=== PATIENT | female | born 1965 | race Caucasian/White ===

== ENCOUNTER 2016-09-25 17:00 | Observation (INO) | payer OTHER ==
[~2016-09-25] VITALS: Ht 162.6 cm; Wt 96.7 kg
[2016-09-25] MEDS ORDERED: ASPIRIN 81 MG CHEW PO STA (17:30)
[2016-09-25 17:31] LABS: BASO % 0.2 %; BASO ABS # 0.01 K/uL (0-0.2); COMPLETE YES; EOS % 3.6 %; HEMATOCRIT 41.9 % (37-47); IG% 0.3 %; LYMPH % 34.4 %; LYMPH ABS # 2.28 K/uL (1.2-3.4); MEAN CELL VOLUME 86.4 fL (80-100); MEAN CORPUSCULAR HEMOGLOBIN 30.5 pg (25-34); MEAN CORPUSCULAR HGB CONC 35.3 g/dl (32-36); MEAN PLATELET VOLUME 9.1 fL (7.4-10.4); MONO % 8.9 %; NEUT % 52.6 %; PLATELET COUNT 269 K/uL (130-400); RED BLOOD COUNT 4.85 M/uL (4.2-5.4); WHITE BLOOD COUNT 6.63 K/uL (4.8-10.8)
[2016-09-25] MEDS ORDERED: METF-384 PO (17:41)
[2016-09-25] MEDS ORDERED: CHOL2000 PO (17:41)
[2016-09-25] MEDS ORDERED: ESOM20CA PO (17:41)
[2016-09-25 17:48] LABS: BLOOD UREA NITROGEN 10 mg/dl (7-18); BUN/CREATININE RATIO 11.3 (10-20); CALCIUM 8.9 mg/dl (8.5-10.1); CARBON DIOXIDE 27 mmol/L (21-32); CHLORIDE 103 mmol/L (98-107); CREATININE 0.88 mg/dl (0.60-1.20); GLUCOSE 145 mg/dl (70-99); POTASSIUM 3.5 mmol/L (3.5-5.1); SODIUM 141 mmol/L (136-145)
--- NOTE | 2016-09-25 17:50 | DIAGNOSTIC IMAGING REPORT ---
CHEST ONE VIEW PORTABLE CLINICAL HISTORY: Atypical chest pain COMPARISON STUDY: No previous studies for comparison. FINDINGS: The cardiac and mediastinal contours are normal. There is no evidence of focal pulmonary consolidation. There is no evidence of failure. No pleural effusions are visualized.[ There are linear left basilar opacities, likely atelectatic. IMPRESSION: No active disease in the chest. Electronically signed by: Wayne Lewis M.D. 09/25/2016 5:48 PM Dictated Date/Time: 09/25/2016 5:48 PM
[2016-09-25 17:53] LABS: CKMB/CK RATIO 1.6 (0-3.0)
[2016-09-25] MEDS ORDERED: IV FLUIDS COMPLETED PRN (19:45)
[2016-09-25 20:03] LABS: ALKALINE PHOSPHATASE 51 U/L (45-117); ALT/SGPT 37 U/L (12-78); AST/SGOT 21 U/L (15-37); MAGNESIUM 1.7 mg/dl (1.8-2.4)
[2016-09-25] MEDS ORDERED: GLUCOSE 40% GEL 15 GM TUBE PO PRN (20:15)
[2016-09-25] MEDS ORDERED: ONDANSETRON INJ 2 MG/ML 2 ML VIAL IV PRN (20:15)
[2016-09-25] MEDS ORDERED: DEXTROSE 50% 50 ML SYR IV PRN (20:15)
[2016-09-25] MEDS ORDERED: GLUCOSE 10 TABS/TUBE PO PRN (20:15)
[2016-09-25] MEDS ORDERED: OPTIRAY 320 IV PRN (20:15)
[2016-09-25] MEDS ORDERED: PROMETHAZINE HCL INJ 12.5 MG in SODIUM CHLORIDE 0.9% 50ML 50 ML IV PRN (20:15)
[2016-09-25] MEDS ORDERED: TRAMADOL HCL 50 MG TAB PO PRN (20:15)
[2016-09-25] MEDS ORDERED: ACETAMINOPHEN 325 MG TAB PO PRN (20:15)
[2016-09-25] MEDS ORDERED: LORAZEPAM 2 MG/ML 1 ML VIAL IV PRN (20:15)
[2016-09-25] MEDS ORDERED: GLUCAGON FOR INJ 1 MG VIAL SQ PRN (20:15)
[2016-09-25] MEDS ORDERED: MoRPHine SULFATE 4 MG/ML 1 ML CARP\\VIAL IV PRN (20:15)
[2016-09-25] MEDS ORDERED: NITROGLYCERIN 0.4 MG SL PER TAB CHARGE SL PRN (20:15)
--- NOTE | 2016-09-25 20:36 | DIAGNOSTIC IMAGING REPORT ---
CT ANGIOGRAM OF THE CHEST, ABDOMEN, AND PELVIS CLINICAL HISTORY: Atypical chest and abdominal pain. Suspected aortic dissection. COMPARISON STUDY: Chest x-ray dated 09/25/2016 TECHNIQUE: Before and following the IV administration of 110 mL of [id number]-320, CT angiogram of the chest, abdomen, and pelvis was performed from the thoracic inlet to the proximal femurs. Images are reviewed in the axial, sagittal, and coronal planes. IV contrast was administered without complication. Imaged portions of the thyroid gland are normal in appearance. MIP images were performed. CT DOSE: 2942.28 mGy.cm FINDINGS: CHEST: Thoracic aorta: The thoracic aorta is normal in course and caliber, noting standard 3-vessel arch anatomy. No aneurysm or dissection is seen. Pulmonary vasculature: The pulmonary trunk is normal in caliber. There are no filling defects in the main, lobar, or segmental pulmonary branches to suggest pulmonary embolus. HEART: The heart is normal in size and configuration, without pericardial effusion. Lungs and pleural spaces: There are no pleural effusions. There is left basilar atelectasis. There is no lobar consolidation. There are bilateral calcified granulomata present. Mediastinum: There is no mediastinal lymphadenopathy. Tuyet: Clear. Axilla: Clear. ABDOMEN AND PELVIS: Liver: No hepatic masses are visualized in this arterial phase study. Gallbladder: Cholelithiasis Spleen: Normal in size and attenuation. Pancreas: Unremarkable. Adrenal glands: Unremarkable. Kidneys: There is symmetric renal cortical enhancement. The kidneys are normal in size without hydronephrosis. Bowel: There are no transition zones indicate bowel obstruction. There is no evidence of acute appendicitis. There is no evidence of acute diverticulitis. Peritoneum: There is no intraperitoneal free air or abdominal ascites. There is a fat-containing umbilical hernia. Abdominal aorta: The abdominal aorta is normal in course and caliber. There is no evidence of common iliac or external iliac stenosis. There is no evidence of renal artery stenosis. There are 3 right renal arteries. There is no evidence of superior mesenteric artery stenosis or celiac artery stenosis. The inferior mesenteric artery is patent. Adenopathy: None. Pelvic viscera: There is a 34 mm right ovarian cyst. Skeletal structures: No destructive osseous lesions are seen. IMPRESSION: 1. No CT evidence of thoracic or abdominal aortic aneurysm or dissection 2. Cholelithiasis 3. No evidence of bowel obstruction. No evidence of free air. 4. No evidence of acute diverticulitis. No evidence of acute appendicitis 5. Fat-containing umbilical hernia 6. 34 mm right ovarian cyst Electronically signed by: Wyane Lewis M.D. 09/25/2016 8:34 PM Dictated Date/Time: 09/25/2016 8:26 PM
[2016-09-25 21:03] VITALS: BP 139/88; PULSE 75; TEMP 36.5; O2SAT 96; Ht 162.6 cm; Wt 96.7 kg
[2016-09-25] MEDS ORDERED: MAGNESIUM SULFATE 1GM / D5W 1 GM in PREMIXED IN D5W 100 ML IV ONE (21:30)
--- NOTE | 2016-09-25 21:36 | HISTORY & PHYSICAL EXAMINATION ---
DATE OF ADMISSION: 09/25/2016 PRIMARY CARE DOCTOR: Dr. Bjorn Bradford obtained from px and records. CHIEF COMPLAINT: Chest pain. HISTORY OF PRESENT ILLNESS: Medical history is significant for DM2 on oral medications. GERD. Two weeks history on and off substernal discomfort going to her shoulder blades , some shortness of breath, no diaphoresis, nonpleuritic. At some point discomfort going to the left arm. Admits to some stress at work from a co-worker. Currently comfortable in the Emergency Room. MEDICAL HISTORY: As above. SURGERIES: She had foot surgery, some cyst drainage. HOME MEDICATIONS: Include; metformin, Nexium, vitamin D. ALLERGIES: TO AZITHROMYCIN, LATEX, SULFA. FAMILY HISTORY: Heart disease. PERSONAL AND SOCIAL HISTORY: Nonsmoker. No chronic intake of alcoholic beverages, tobacco dipper REVIEW OF SYSTEMS: As per HPI, all other ROS negative. PHYSICAL EXAMINATION: VITAL SIGNS: Blood pressure is 146/90, pulse rate 92, RR 18, temperature 36.6 sats 98 on room air. GENERAL: Noted to be slightly anxious, obese, in no respiratory distress. SKIN: Normal color. HEENT: [place] palpebral conjunctivae. Dry mucosa. NECK: No JVD , supple CHEST: Clear to auscultation. HEART: Regular rate and rhythm. ABDOMEN: Soft. EXTREMITIES: No edema. no tenderness NEUROLOGIC: No gross focality. LABORATORIES: Hemoglobin was 14, hematocrit 41, white cell count 6, platelets 200 Sodium 141, potassium 3.5, chloride 105, CO2 27, BUN 16, creatinine 0.8, glucose 140. Troponin was normal. EKG; rate 80, normal sinus rhythm. no ischemia, PRWP Chest x-ray; no infiltrate. ASSESSMENT: 1. Chest pain. Differentials include : aortic dissection, acute coronary syndrome, anxiety 2. DM2 on oral medications unknown baseline control 3. hx exercise induced asthma 4. GERD, stable on medications. PLAN: Observation PCU. CT chest, aortic dissection study DSE if if CT angio unremarkable and next troponin normal. Aspirin for CAD prevention until ACS is ruled out. anxiolytic prn ISS BG goal 140-180, check HgA1c. DVT prophylaxis. Lovenox subQ Full code. MTDD
[2016-09-25] MEDS: INSULIN ASPART 100 UNITS/ML 3 ML PEN SC SCH (22:01)
[2016-09-25] MEDS: LACTATED RINGER'S 1000ML 1,000 ML IV SCH (22:07)
--- NOTE | 2016-09-25 22:26 | EMERGENCY ROOM VISIT NOTE ---
History Report prepared by Aaliyah: Rashaad Chris Under the Supervision of: Dr. Aries Merlos D.O. First contact with patient: 17:10 Chief Complaint: CARDIAC ASSESSMENT Stated Complaint: CHEST PAIN History of Present Illness The patient is a 51 year old female who presents to the Emergency Room with complaints of persistent chest discomfort for the past five days. The patient describes the discomfort as feeling like somebody is pushing on her chest and she feels it in the middle of her chest. The patient notes that she has woken up with the pain three times. She also complains of a "weird sensation" in her left arm that she describes as pinching and aching as well as some shortness of breath. She does have a history of asthma so she is unsure if the shortness of breath is related to her history, but her inhaler has not been helping relieve her symptoms. She notes that she has been experiencing the arm pain and shortness of breath at the same times the she is having the chest pain. The patient has noticed that she has been experiencing increased stress at work for the past week and she has been feeling more anxious than normal. Pt denies headache, change in vision, fevers, jaw pain, nausea, vomiting, diarrhea, pain with urination, melena, or swelling of calves. She denies recent travel. Source of History: patient Onset: 5 days Position: chest Quality: other (pushing on her chest) Timing: other (persistent) Associated Symptoms: + SOB, No diarrhea, No fevers, No headache, No melena, No nausea, No urinary symptoms, No vomiting Note: Other associated symptoms: left arm pain, Denies: changes in vision, jaw pain, swelling of calves. Review of Systems See HPI for pertinent positives & negatives. A total of 10 systems reviewed and were otherwise negative. Past Medical & Surgical Medical Problems: (1) Chest pain Family History Patient reports no known family medical history. Social History Smoking Status: Never Smoker Marital Status: Housing Status: lives with significant other Occupation Status: employed Current/Historical Medications Scheduled Cholecalciferol (Vitamin D3), 1 CAP PO DAILY Esomeprazole Magnesium (Nexium), 20 MG PO DAILY Metformin Hcl (Glucophage), 1,000 MG PO BID Allergies Coded Allergies: Azithromycin (Verified Allergy, Unknown, hives, 09/25/16) Latex (Verified Allergy, Unknown, swelling, 09/25/16) Sulfa Antibiotics (Verified Allergy, Unknown, hives, 09/25/16) Physical Exam Vital Signs Date Time Temp Pulse Resp B/P Pulse Ox O2 Delivery O2 Flow Rate FiO2 09/25/16 19:28 80 19 134/67 96 Room Air 09/25/16 18:58 77 18 134/75 94 Room Air 09/25/16 18:28 81 15 136/73 95 Room Air 09/25/16 18:03 75 16 118/89 96 Room Air 09/25/16 17:24 96 Room Air 09/25/16 17:18 84 09/25/16 17:10 96 Room Air 09/25/16 17:04 37.2 92 18 146/92 98 Room Air Physical Exam GENERAL: sitting up in bed, anxious, distressed, non-toxic EYE EXAM: normal conjunctiva, OROPHARYNX: no exudate, no erythema, lips, buccal mucosa, and tongue normal and mucous membranes are moist NECK: supple, no nuchal rigidity, no adenopathy, non-tender LUNGS: Clear to auscultation. Normal chest wall mechanics HEART: no murmurs, S1 normal and S2 normal ABDOMEN: abdomen soft, non-tender, normo-active bowel sounds, no masses, no rebound or guarding. BACK: Back is symmetrical on inspection and there is no deformity, no midline tenderness, no CVA tenderness. SKIN: no rashes and no bruising UPPER EXTREMITIES: upper extremities are grossly normal. Radial pulses are equal bilaterally LOWER EXTREMITIES: No pitting edema. Calves are equal bilaterally. NEURO EXAM: Normal sensorium, cranial nerves II-XII grossly intact, normal speech, no gross weakness of arms, no gross weakness of legs. Medical Decision & Procedures ER Provider Diagnostic Interpretation: Xray results per the radiologist and my interpretation. Other results have been interpreted by the radiologist and reviewed by me. CHEST ONE VIEW PORTABLE CLINICAL HISTORY: Atypical chest pain COMPARISON STUDY: No previous studies for comparison. FINDINGS: The cardiac and mediastinal contours are normal. There is no evidence of focal pulmonary consolidation. There is no evidence of failure. No pleural effusions are visualized.[ There are linear left basilar opacities, likely atelectatic. IMPRESSION: No active disease in the chest. Electronically signed by: Wayne Lewis M.D. 09/25/2016 5:48 PM Dictated Date/Time: 09/25/2016 5:48 PM Laboratory Results 1/22/17 17:20 Red Blood Count 4.85, Mean Corpuscular Volume 86.4, Mean Corpuscular Hemoglobin 30.5, Mean Corpuscular Hemoglobin Concent 35.3, Mean Platelet Volume 9.1, Neutrophils (%) (Auto) 52.6, Lymphocytes (%) (Auto) 34.4, Monocytes (%) (Auto) 8.9, Eosinophils (%) (Auto) 3.6, Basophils (%) (Auto) 0.2, Neutrophils # (Auto) 3.49, Lymphocytes # (Auto) 2.28, Monocytes # (Auto) 0.59, Eosinophils # (Auto) 0.24, Basophils # (Auto) 0.01 09/25/16 17:20 Test 09/25/16 17:20 White Blood Count 6.63 K/uL (4.8-10.8) Red Blood Count 4.85 M/uL (4.2-5.4) Hemoglobin 14.8 g/dL (12.0-16.0) Hematocrit 41.9 % (37-47) Mean Corpuscular Volume 86.4 fL (80-100) Mean Corpuscular Hemoglobin 30.5 pg (25-34) Mean Corpuscular Hemoglobin Concent 35.3 g/dl (32-36) Platelet Count 269 K/uL (130-400) Mean Platelet Volume 9.1 fL (7.4-10.4) Neutrophils (%) (Auto) 52.6 % Lymphocytes (%) (Auto) 34.4 % Monocytes (%) (Auto) 8.9 % Eosinophils (%) (Auto) 3.6 % Basophils (%) (Auto) 0.2 % Neutrophils # (Auto) 3.49 K/uL (1.4-6.5) Lymphocytes # (Auto) 2.28 K/uL (1.2-3.4) Monocytes # (Auto) 0.59 K/uL (0.11-0.59) Eosinophils # (Auto) 0.24 K/uL (0-0.5) Basophils # (Auto) 0.01 K/uL (0-0.2) RDW Standard Deviation 41.4 fL (36.4-46.3) RDW Coefficient of Variation 13.0 % (11.5-14.5) Immature Granulocyte % (Auto) 0.3 % Immature Granulocyte # (Auto) 0.02 K/uL (0.00-0.02) Activated Partial Thromboplast Time 25.4 SECONDS (21.0-31.0) Partial Thromboplastin Ratio 1.0 Anion Gap 11.0 mmol/L (3-11) Est Creatinine Clear Calc Drug Dose 84.7 ml/min Estimated GFR () 88.2 Estimated GFR (Non- 76.1 BUN/Creatinine Ratio 11.3 (10-20) Calcium Level 8.9 mg/dl (8.5-10.1) Magnesium Level 1.7 mg/dl (1.8-2.4) Total Bilirubin 0.2 mg/dl (0.2-1) Direct Bilirubin < 0.1 mg/dl (0-0.2) Aspartate Amino Transf (AST/SGOT) 21 U/L (15-37) Alanine Aminotransferase (ALT/SGPT) 37 U/L (12-78) Alkaline Phosphatase 51 U/L (45-117) Total Creatine Kinase 98 U/L (26-192) Creatine Kinase MB 1.6 ng/ml (0.5-3.6) Creatine Kinase MB Ratio 1.6 (0-3.0) Troponin I < 0.015 ng/ml (0-0.045) Total Protein 7.9 gm/dl (6.4-8.2) Albumin 3.6 gm/dl (3.4-5.0) Lipase 158 U/L (73-393) Thyroid Stimulating Hormone (TSH) 3.440 uIu/ml (0.300-4.500) Laboratory results per my review. Medications Administered Medications (Trade) Dose Ordered Sig/Aleah Route Start Time Stop Time Status Last Admin Dose Admin Aspirin (Aspirin Chew) 162 mg NOW STAT PO 09/25/16 17:30 09/25/16 17:31 DC 09/25/16 18:03 162 MG ECG Indication: chest pain Rate (beats per minute): 80 Rhythm: sinus rhythm Findings: other (normal axis. flipped t-wave in lead 3) Change: Repeat EKG since patient had an episode of chest pain: No acute change. Sinus rhythm, rate of 72, Normal axis, T-wave in lead 3. ED Course ED COURSE: Vital signs were reviewed and showed normal The patients medical record was reviewed The above diagnostic studies were performed and reviewed. ED treatments and interventions as stated above. 170: The patient was evaluated in room A11. A complete history and physical examination was performed. 1729: Ordered Aspirin 162 mg PO. 1923: At this time, I discussed the patient's case with Dr. José - Mike Castillo and he agreed to accept the patient for further evaluation. 1929: Upon reevaluation, the patient is resting.I discussed my findings with the patient and she understands and agrees with the treatment plan. Based on the patients age, coexisting illnesses, exam and lab findings the decision to treat as an inpatient was made. The patient remained stable while under my care. The patient will be evaluated for further management. Medical Decision Differential diagnoses includes but is not limited to acute coronary syndrome, myocardial infarction, pericarditis, pulmonary embolus, aortic dissection, pneumonia, pneumothorax, musculoskeletal, shingles, esophageal. Patient is a 51-year-old female who presents the ER for intermittent chest pain over the past 24 hours along with shortness of breath and left arm pain. She does have a history of diabetes and coronary artery disease runs in her family. The symptoms do not appear to be exertional. She has no other complaints at this time. She complete asystematic. EKG shows a flipped T-wave in lead 3. CBC along with BMP, and troponin are negative. Chest x-ray was unremarkable. Patient was updated regards to findings. She did have one episode of chest pain along the ER which resolved quickly but were unable to obtain an EKG which was unchanged. She was given 2 additional aspirin upon arrival as she had taken to already. She was updated in its internal medicine for cardiac rule out. Consults Time Called: 1919 Consulting Physician: Dr. José - Mike Csatillo Returned Call: 1923 At this time, I discussed the patient's case with Dr. José and he agreed to accept the patient for further evaluation. Impression Primary Impression: Precordial chest pain Scribe Attestation The scribe's documentation has been prepared under my direction and personally reviewed by me in its entirety. I confirm that the note above accurately reflects all work, treatment, procedures, and medical decision making performed by me. Departure Information Dispostion Being Evaluated By HospitalNavid Rizzo D.O. (PCP)
[2016-09-25 23:52] VITALS: BP 136/86; PULSE 82; TEMP 36.8; O2SAT 95
[2016-09-26 03:32] VITALS: BP 110/69; PULSE 74; TEMP 36.6; O2SAT 96
[2016-09-26 06:40] LABS: BASO % 0.2 %; BASO ABS # 0.01 K/uL (0-0.2); COMPLETE YES; EOS % 4.1 %; IG% 0.3 %; LYMPH % 31.6 %; LYMPH ABS # 1.98 K/uL (1.2-3.4); MEAN CELL VOLUME 86.2 fL (80-100); MEAN CORPUSCULAR HEMOGLOBIN 29.3 pg (25-34); MEAN PLATELET VOLUME 9.2 fL (7.4-10.4); MONO % 7.8 %; PLATELET COUNT 235 K/uL (130-400); RED BLOOD COUNT 4.64 M/uL (4.2-5.4); WHITE BLOOD COUNT 6.27 K/uL (4.8-10.8)
[2016-09-26] MEDS: INSULIN ASPART 100 UNITS/ML 3 ML PEN SC SCH ×3 (07:00→16:15)
[2016-09-26 07:04] LABS: ESTIMATED AVERAGE GLUCOSE 169 mg/dl; HA1C FLAG Normal (Normal)
[2016-09-26 07:16] LABS: BLOOD UREA NITROGEN 10 mg/dl (7-18); BUN/CREATININE RATIO 16.9 (10-20); CARBON DIOXIDE 27 mmol/L (21-32); CHLORIDE 105 mmol/L (98-107); CREATININE 0.62 mg/dl (0.60-1.20); GLUCOSE 160 mg/dl (70-99); MAGNESIUM 2.1 mg/dl (1.8-2.4); POTASSIUM 3.6 mmol/L (3.5-5.1); SODIUM 141 mmol/L (136-145)
[2016-09-26 07:18] VITALS: BP 110/69; PULSE 80; TEMP 36.6; O2SAT 95
[2016-09-26 07:21] LABS: CHOLESTEROL 171 mg/dl (0-200); CHOLESTEROL/HDL RATIO 4.6; HDL CHOLESTEROL 37 mg/dl; LDL CHOLESTEROL CALCULATED 88 mg/dl; TRIGLYCERIDES 232 mg/dl (0-150); VERY LOW DENSITY LIPOPROT CALC 46 mg/dl
[2016-09-26] MEDS ORDERED: PANTOprazole SOD 40 MG TAB PO SCH (09:00)
[2016-09-26] MEDS ORDERED: ENOXAPARIN 40 MG/0.4 ML SYR SQ SCH (09:00)
[2016-09-26] MEDS ORDERED: ASPIRIN 325 MG ECTAB PO SCH (09:00)
[2016-09-26] MEDS ORDERED: ATROPINE SULFATE 0.1 MG/ML 5ML SYR ONE ×2 (09:55→10:50)
[2016-09-26] MEDS ORDERED: METOPROLOL TARTRATE 1 MG/ML VIAL ONE (09:55)
[2016-09-26] MEDS ORDERED: DOBUTamine HCL 12.5 MG/ML 20 ML VIAL ONE (09:55)
[2016-09-26] MEDS: LACTATED RINGER'S 1000ML 1,000 ML IV SCH (10:50)
--- NOTE | 2016-09-26 11:46 | DOBUTAMINE ECHO ---
*NOTICE TO RECEIVING DEMOCRAT AGENCY This information is strictly Confidential and protected under [place] law. [place] law prohibits you from making any further disclosure of this information unless further disclosure is expressly permitted by the written consent of the person to whom it pertains or is authorized by law. A general authorization for the release of medical or other information is not sufficient for this purpose. Hospital accepts no responsibility if the information is made available to any other person, INCLUDING THE PATIENT. Interpretation Summary * STRESS STUDY: Normal pharmacologic stress echocardiogram. No echocardiographic or ECG evidence of myocardial ischemia having achieved heart rate adequate for diagnostic purposes. * -- Conclusions -- * Name: MORENA PURCELL Study Date: 09/26/2016 09:29 AM BP: 135/67 mmHg * Patient Location: 15 HR: 87 * : 1965 (M/d/yyyy) Gender: Female Height: 64 in * Age: 51 yrs Ethnicity: [place] Weight: 213 lb * Ordering Physician: Ottoniel José * Referring Physician: Self, Referred * Performed By: Mane Fitzgerald RCS * * Reason For Study: Chest Pain * BSA: 2.0 m2 Procedure Details * DOBUTAMINE ECHO, CPT#59409 * ECHO COLOR FLOW, CPT #[id number] * ECHO DOPPLER, CPT #[id number] Left Ventricle * The left ventricle is normal in size. * There is normal left ventricular wall thickness. * Left ventricular systolic function is normal. * Ejection Fraction = 60-65%. * The left ventricular wall motion is normal at rest. * The left ventricular ejection fraction increases normally with stress. The left ventricular end-systolic cavity size reduces post-stress (normal response). The left ventricular wall motion with stress is normal. Right Ventricle * The right ventricle is normal in size and function. Atria * The left atrial size is normal. * Right atrial size is normal. * No ASD detected; PFO is not assessed. Mitral Valve * The mitral valve anatomy is normal. * There is no mitral valve stenosis. * Significant mitral regurgitation is absent. Tricuspid Valve * The tricuspid valve anatomy is normal. * There is no tricuspid stenosis. * Significant tricuspid regurgitation is absent. Aortic Valve * The aortic valve is trileaflet. * Aortic stenosis is absent. * There is no significant aortic regurgitation. Pulmonic Valve * The pulmonary valve is not well seen, but the Doppler examination is normal without significant regurgitation or stenosis. Great Vessels * The aortic root and proximal ascending aorta are normal sized. Pericardium * There is no pericardial effusion. Stress Parameters * Normal baseline electrocardiogram. * The stress ECG response was normal * The stress portion of this study was personally supervised by the undersigned interpreting physician. * Rest heart rate was '87' BPM. * Rest blood pressure was '135/67' * Maximum heart rate achieved was 155 bpm. * Maximum heart rate was 91 % of maximum age-predicted heart rate. * Maximum blood pressure was '135/67' * Maximum Dobutamine infusion rate was '40' mcg/kg/min. * A total of .5 mg of intravenous Atropine was used to supplement Dobutamine for heart rate response. * Dobutamine infusion was terminated due to achieving target heart rate * A total of 10 mg of IV Metoprolol was administered to reverse Dobutamine-induced tachycardia. * Normal blood pressure response to exercise. MMode 2D Measurements and Calculations IVSd 0.96 cm IVSs 1.3 cm LVIDd 4.6 cm LVIDs 2.8 cm LVPWd 0.97 cm LVPWs 1.3 cm IVS/LVPW 0.99 FS 38.9 % EDV(Teich) 96.9 ml ESV(Teich) 29.7 ml EF(Teich) 69.3 % EDV(cubed) 96.7 ml ESV(cubed) 22.1 ml EF(cubed) 77.2 % % IVS thick 31.2 % % LVPW thick 30.0 % LV mass(C)d 150.4 grams LV mass(C)dI 74.9 grams/m\S\2 LV mass(C)s 107.7 grams LV mass(C)sI 53.6 grams/m\S\2 CO(Teich) 5.1 l/min CI(Teich) 2.5 l/min/m\S\2 SV(Teich) 67.1 ml SI(Teich) 33.4 ml/m\S\2 CO(cubed) 5.7 l/min CI(cubed) 2.8 l/min/m\S\2 SV(cubed) 74.6 ml SI(cubed) 37.1 ml/m\S\2 Ao root diam 3.1 cm Ao root area 7.6 cm\S\2 ACS 1.7 cm LA dimension 3.3 cm LA/Ao 1.1 LVAd ap4 27.9 cm\S\2 LVLd ap4 7.9 cm EDV(MOD-sp4) 81.0 ml LVAs ap4 15.2 cm\S\2 LVLs ap4 6.0 cm ESV(MOD-sp4) 33.0 ml EF(MOD-sp4) 59.3 % LVAd ap2 32.1 cm\S\2 LVLd ap2 9.2 cm EDV(MOD-sp2) 94.0 ml LVAs ap2 16.5 cm\S\2 LVLs ap2 6.7 cm ESV(MOD-sp2) 34.0 ml EF(MOD-sp2) 63.8 % CO(MOD-sp4) 3.6 l/min CI(MOD-sp4) 1.8 l/min/m\S\2 SV(MOD-sp4) 48.0 ml SI(MOD-sp4) 23.9 ml/m\S\2 CO(MOD-sp2) 4.6 l/min CI(MOD-sp2) 2.3 l/min/m\S\2 SV(MOD-sp2) 60.0 ml SI(MOD-sp2) 29.9 ml/m\S\2 Doppler Measurements and Calculations MV E max verónica 90.8 cm/sec MV A max verónica 83.4 cm/sec MV E/A 1.1 MV P1/2t max verónica 94.1 cm/sec MV P1/2t 93.3 msec MVA(P1/2t) 2.4 cm\S\2 MV dec slope 295.4 cm/sec\S\2 MV dec time 0.21 sec Ao V2 max 115.6 cm/sec Ao max PG 5.3 mmHg Ao max PG (full) 2.5 mmHg LV V1 max PG 2.8 mmHg LV V1 max 83.9 cm/sec PA V2 max 101.8 cm/sec PA max PG 4.1 mmHg TR max verónica 210.7 cm/sec
[2016-09-26] MEDS ORDERED: NURSING VERBAL MED ORDER ONE (14:15)
[2016-09-26 15:18] VITALS: BP 116/62; PULSE 95; TEMP 36.9; O2SAT 93
--- NOTE | 2016-09-26 15:54 | Progress Note ---
Internal Med Progress Note Date of Service: Sep 26, 2016. Provider Documentation: SUBJECTIVE: The patient was seen and examined Non exertional chest pain No more since admission OBJECTIVE: Vital Signs-as noted below Exam: General-No distress at rest Eyes-Normal ENT-normal Neck-supple Lungs-Clear to auscultate bilaterally ,no masses,bowel sound present bilaterally Heart-Regular,no murmur Abdomen-Benign,no masses,bowel sound present Extremities-No0 edema Neuro-AAOx3 Lab data as noted below. ASSESSMENT & PLAN: Atypical Chest pain. Doubt any aortic dissection,Pulmonary embolism Component of Anxiety R/O ACS Negative Gray and EKG S/P Negative Dobutamine Stress ECHO Will discharge today DM2 on oral medications Hb A1c-7.5 Diabetic Diet ISS BG goal 140-180, check HgA1c. H/O exercise induced asthma No acute issue GERD, stable on medications. DVT prophylaxis. Lovenox subQ Full code. Vital Signs: Date Time Temp Pulse Resp B/P Pulse Ox O2 Delivery O2 Flow Rate FiO2 09/26/16 15:18 36.9 95 18 116/62 93 Room Air 09/26/16 12:00 Room Air 09/26/16 08:00 Room Air 09/26/16 07:18 36.6 80 18 110/69 95 Room Air 09/26/16 04:00 Room Air 09/26/16 03:32 36.6 74 17 110/69 96 Room Air 09/26/16 00:00 Room Air 09/25/16 23:52 36.8 82 17 136/86 95 Room Air 09/25/16 21:03 36.5 75 16 139/88 96 Room Air 09/25/16 19:57 80 19 134/67 96 09/25/16 19:28 80 19 134/67 96 Room Air 09/25/16 18:58 77 18 134/75 94 Room Air 09/25/16 18:28 81 15 136/73 95 Room Air 09/25/16 18:03 75 16 118/89 96 Room Air 09/25/16 17:24 96 Room Air 09/25/16 17:18 84 09/25/16 17:10 96 Room Air 09/25/16 17:04 37.2 92 18 146/92 98 Room Air Lab Results: Results Past 24 Hours Test 09/25/16 17:20 09/25/16 21:55 09/26/16 06:12 09/26/16 06:33 Range/Units White Blood Count 6.63 6.27 4.8-10.8 K/uL Red Blood Count 4.85 4.64 4.2-5.4 M/uL Hemoglobin 14.8 13.6 12.0-16.0 g/dL Hematocrit 41.9 40.0 37-47 % Mean Corpuscular Volume 86.4 86.2 80-100 fL Mean Corpuscular Hemoglobin 30.5 29.3 25-34 pg Mean Corpuscular Hemoglobin Concent 35.3 34.0 32-36 g/dl Platelet Count 269 235 130-400 K/uL Mean Platelet Volume 9.1 9.2 7.4-10.4 fL Neutrophils (%) (Auto) 52.6 56.0 % Lymphocytes (%) (Auto) 34.4 31.6 % Monocytes (%) (Auto) 8.9 7.8 % Eosinophils (%) (Auto) 3.6 4.1 % Basophils (%) (Auto) 0.2 0.2 % Neutrophils # (Auto) 3.49 3.51 1.4-6.5 K/uL Lymphocytes # (Auto) 2.28 1.98 1.2-3.4 K/uL Monocytes # (Auto) 0.59 0.49 0.11-0.59 K/uL Eosinophils # (Auto) 0.24 0.26 0-0.5 K/uL Basophils # (Auto) 0.01 0.01 0-0.2 K/uL RDW Standard Deviation 41.4 41.3 36.4-46.3 fL RDW Coefficient of Variation 13.0 13.1 11.5-14.5 % Immature Granulocyte % (Auto) 0.3 0.3 % Immature Granulocyte # (Auto) 0.02 0.02 0.00-0.02 K/uL Activated Partial Thromboplast Time 25.4 21.0-31.0 SECONDS Partial Thromboplastin Ratio 1.0 Sodium Level 141 141 136-145 mmol/L Potassium Level 3.5 3.6 3.5-5.1 mmol/L Chloride Level 103 105 98-107 mmol/L Carbon Dioxide Level 27 27 21-32 mmol/L Anion Gap 11.0 9.0 3-11 mmol/L Blood Urea Nitrogen 10 10 7-18 mg/dl Creatinine 0.88 0.62 0.60-1.20 mg/dl Est Creatinine Clear Calc Drug Dose 84.7 121.2 ml/min Estimated GFR () 88.2 121.0 Estimated GFR (Non- 76.1 104.4 BUN/Creatinine Ratio 11.3 16.9 10-20 Random Glucose 145 160 70-99 mg/dl Estimated Average Glucose 169 mg/dl Hemoglobin A1c 7.5 4.5-5.6 % Calcium Level 8.9 8.0 8.5-10.1 mg/dl Magnesium Level 1.7 2.1 1.8-2.4 mg/dl Total Bilirubin 0.2 0.2-1 mg/dl Direct Bilirubin < 0.1 0-0.2 mg/dl Aspartate Amino Transf (AST/SGOT) 21 15-37 U/L Alanine Aminotransferase (ALT/SGPT) 37 12-78 U/L Alkaline Phosphatase 51 45-117 U/L Total Creatine Kinase 98 26-192 U/L Creatine Kinase MB 1.6 0.5-3.6 ng/ml Creatine Kinase MB Ratio 1.6 0-3.0 Troponin I < 0.015 < 0.015 0-0.045 ng/ml Total Protein 7.9 6.4-8.2 gm/dl Albumin 3.6 3.4-5.0 gm/dl Lipase 158 73-393 U/L Thyroid Stimulating Hormone (TSH) 3.440 0.300-4.500 uIu/ml Bedside Glucose 142 150 70-90 mg/dl Triglycerides Level 232 0-150 mg/dl Cholesterol Level 171 0-200 mg/dl HDL Cholesterol 37 mg/dl LDL Cholesterol, Calculated 88 mg/dl VLDL Cholesterol, Calculated 46 mg/dl Cholesterol/HDL Ratio 4.6 Test 09/26/16 12:18 Range/Units Bedside Glucose 138 70-90 mg/dl
[2016-09-26 16:00] VITALS: O2SAT 93
[2016-09-26] MEDS ORDERED: ASPEC81 PO (16:01)
--- NOTE | 2016-09-26 16:02 | Discharge Instructions ---
Discharge Instructions Admission Reason for Admission: Chest Pain Discharge Discharge Diagnosis / Problem: Atypical CP ,NO ACS and Negative DSE Discharge Goals Goal(s): Prevent Disease Progression Activity Recommendations Activity Limitations: resume your previous activity . Instructions / Follow-Up Instructions / Follow-Up Please make an appointment with your PCP in 1 week Current Hospital Diet Patient's current hospital diet: Diabetes Type 2 Diet Discharge Diet Recommended Diet: Diabetes Type 2 Diet Pending Studies Studies pending at discharge: no Laboratory Results Hemoglobin A1c Test 09/25/16 17:20 Range/Units Estimated Average Glucose 169 mg/dl Hemoglobin A1c 7.5 H 4.5-5.6 % Lipid Panel Test 09/26/16 06:12 Range/Units Triglycerides Level 232 H 0-150 mg/dl Cholesterol Level 171 0-200 mg/dl HDL Cholesterol 37 mg/dl Cholesterol/HDL Ratio 4.6 LDL Cholesterol, Calculated 88 mg/dl Medical Emergencies . Who to Call and When: Medical Emergencies: If at any time you feel your situation is an emergency, please call 911 immediately. . Non-Emergent Contact Non-Emergency issues call your: Primary Care Provider . . "Provider Documentation" section prepared by Delma Minor. VTE Core Measure Inpt VTE Proph given/why not?: Enoxaparin (Lovenox)SQ
[2016-09-26 16:12] VITALS: BP 116/62; PULSE 95; TEMP 36.9; O2SAT 93
--- NOTE | 2016-09-27 08:31 | Discharge Summary ---
Discharge Summary Admission Date: Sep 25, 2016 at 19:35 Discharge Date: Sep 26, 2016 Discharge Disposition: Home Principal Diagnosis: Atypical Chest pain,Negative DSE Secondary Diagnoses/Problems: Please see H&P Procedures: DSE Medication Reconciliation New Medications: Aspirin (Aspirin EC Low Dose) 81 Mg Ectab 81 MG PO DAILY, #1 Continued Medications: Cholecalciferol (Vitamin D3) 2,000 Unit Cap 1 CAP PO DAILY, CAP 3 Refills Esomeprazole Magnesium (Nexium) 20 Mg Capcr 20 MG PO DAILY, CAP Metformin Hcl (Glucophage) 1,000 Mg Tab 1000 MG PO BID, TAB Admission Information HPI (per Admitting provider): DATE OF ADMISSION: 09/25/2016 PRIMARY CARE DOCTOR: Dr. Bjorn Bradford obtained from px and records. CHIEF COMPLAINT: Chest pain. HISTORY OF PRESENT ILLNESS: Medical history is significant for DM2 on oral medications. GERD. Two weeks history on and off substernal discomfort going to her shoulder blades , some shortness of breath, no diaphoresis, nonpleuritic. At some point discomfort going to the left arm. Admits to some stress at work from a co-worker. Currently comfortable in the Emergency Room. MEDICAL HISTORY: As above. SURGERIES: She had foot surgery, some cyst drainage. HOME MEDICATIONS: Include; metformin, Nexium, vitamin D. ALLERGIES: TO AZITHROMYCIN, LATEX, SULFA. FAMILY HISTORY: Heart disease. PERSONAL AND SOCIAL HISTORY: Nonsmoker. No chronic intake of alcoholic beverages, epic [facility] REVIEW OF SYSTEMS: As per HPI, all other ROS negative. PHYSICAL EXAMINATION: VITAL SIGNS: Blood pressure is 146/90, pulse rate 92, RR 18, temperature 36.6 sats 98 on room air. GENERAL: Noted to be slightly anxious, obese, in no respiratory distress. SKIN: Normal color. HEENT: [place] palpebral conjunctivae. Dry mucosa. NECK: No JVD , supple CHEST: Clear to auscultation. HEART: Regular rate and rhythm. ABDOMEN: Soft. EXTREMITIES: No edema. no tenderness NEUROLOGIC: No gross focality. LABORATORIES: Hemoglobin was 14, hematocrit 41, white cell count 6, platelets 200 Sodium 141, potassium 3.5, chloride 105, CO2 27, BUN 16, creatinine 0.8, glucose 140. Troponin was normal. EKG; rate 80, normal sinus rhythm. no ischemia, PRWP Chest x-ray; no infiltrate. ASSESSMENT: 1. Chest pain. Differentials include : aortic dissection, acute coronary syndrome, anxiety 2. DM2 on oral medications unknown baseline control 3. hx exercise induced asthma 4. GERD, stable on medications. PLAN: Observation PCU. CT chest, aortic dissection study DSE if if CT angio unremarkable and next troponin normal. Aspirin for CAD prevention until ACS is ruled out. anxiolytic prn ISS BG goal 140-180, check HgA1c. DVT prophylaxis. Lovenox subQ Full code. Hospital Course Atypical Chest pain. Doubt any aortic dissection,Pulmonary embolism Component of Anxiety R/O ACS Negative Gray and EKG S/P Negative Dobutamine Stress ECHO Will discharge today DM2 on oral medications Hb A1c-7.5 Diabetic Diet ISS BG goal 140-180, check HgA1c. H/O exercise induced asthma No acute issue GERD, stable on medications. DVT prophylaxis. Lovenox subQ Full code. Total time spent on discharge = 35 minutes This includes examination of the patient, discharge planning, medication reconciliation, and communication with other providers. Discharge Instructions Admission Reason for Admission: Chest Pain Discharge Discharge Diagnosis / Problem: Atypical CP ,NO ACS and Negative DSE Discharge Goals Goal(s): Prevent Disease Progression Activity Recommendations Activity Limitations: resume your previous activity . Instructions / Follow-Up Instructions / Follow-Up Please make an appointment with your PCP in 1 week Current Hospital Diet Patient's current hospital diet: Diabetes Type 2 Diet Discharge Diet Recommended Diet: Diabetes Type 2 Diet Pending Studies Studies pending at discharge: no Laboratory Results Hemoglobin A1c Test 09/25/16 17:20 Range/Units Estimated Average Glucose 169 mg/dl Hemoglobin A1c 7.5 H 4.5-5.6 % Lipid Panel Test 09/26/16 06:12 Range/Units Triglycerides Level 232 H 0-150 mg/dl Cholesterol Level 171 0-200 mg/dl HDL Cholesterol 37 mg/dl Cholesterol/HDL Ratio 4.6 LDL Cholesterol, Calculated 88 mg/dl Medical Emergencies . Who to Call and When: Medical Emergencies: If at any time you feel your situation is an emergency, please call 911 immediately. . Non-Emergent Contact Non-Emergency issues call your: Primary Care Provider . . "Provider Documentation" section prepared by Delma Minor. VTE Core Measure Inpt VTE Proph given/why not?: Enoxaparin (Lovenox)SQ Additional Copies To Navid Milan D.O.
== END 2016-09-26 17:20 | disposition home or self-care (01) ==
LOC: ENRESERVDT → ENRESERVTM → C.EDB 17:00 → C.2T 19:35
PROVIDERS: ADMIT Internal Medicine; ATTEND Internal Medicine
DX: R07.89 Other chest pain (principal); E11.9 Type 2 diabetes mellitus without complications; K21.9 Gastro-esophageal reflux disease without esophagitis; J45.998 Other asthma; E66.9 Obesity, unspecified; Z51.81 Encounter for therapeutic drug level monitoring; Z79.899 Other long term (current) drug therapy; Z79.84 Long term (current) use of oral hypoglycemic drugs; Z82.49 Family history of ischemic heart disease and other diseases of the circulatory system; Z68.36 Body mass index [BMI] 36.0-36.9, adult